=== PATIENT | female | born 1950 | race Two or more races ===

== ENCOUNTER 2024-05-20 07:20 | Day surgery (SDC) | payer MEDICARE, BC, SELFPAY ==
--- NOTE | 2024-05-17 10:40 | EKG_ITS ---
[facility] Test Date: 2024-05-17 Pat Name: RENE URIOSTEGUI Department: Room: - Gender: Female Brand Sales Manager: RT STUDENT : 1950 Requested By: Emeterio Woody Order Number: [id number] Reading MD: Emeterio Woody Measurements Intervals [place] Rate: 59 P: 34 NH: 140 QRS: -1 QRSD: 83 T: 4 QT: 432 QTc: 429 Interpretive Statements SINUS BRADYCARDIA MODERATE VOLTAGE CRITERIA FOR LVH, CONSIDER NORMAL VARIANT [MEETS CRITERIA IN ONE OF: R(aVL), S(V1), R(V5), R(V5/V6)+S(V1)] WARNING: DATA QUALITY MAY AFFECT INTERPRETATION No previous ECG available for comparison /[email or web address]/[id number]/[id number]
[2024-05-17 11:16] LABS: Partial Thromboplastin Time 26.8 Seconds (22.0-36.0); Prothrombin Time 10.7 Seconds (9.0-12.2)
[2024-05-17 11:30] LABS: Alanine Aminotransferase 17 U/L (10-49); Albumin, Serum 4.5 gm/dL (3.4-4.8); Albumin/Globulin Ratio 1.7 (1.2-2.2); Alkaline Phosphatase 85 U/L (46-116); Anion Gap 8 (7-16); Aspartate Amino Transferase 11 U/L (0-34); BUN/Creatinine Ratio 21 Ratio (12-20); Bilirubin,Total 0.5 mg/dL (0.3-1.2); Blood Urea Nitrogen 17 mg/dL (9-23); Calcium 9.7 mg/dL (8.3-10.6); Calcium (Corrected) 9.7 mg/dL (8.5-10.1); Carbon Dioxide 27.4 mMol/L (20.0-31.0); Chloride 105 mMol/L (98-107); Creatinine (Component) 0.8 mg/dL (0.6-1.3); Globulin 2.7 gm/dL (2.3-3.5); Glucose 95 mg/dL (74-106); Osmolality,Calculated 280 (275-295); Potassium 4.6 mMol/L (3.4-5.1); Sodium 140 mMol/L (136-145); Total Protein 7.2 gm/dL (5.7-8.2); eGFR > 60 See Note
[2024-05-17 13:34] VITALS: BMI 32.5
[2024-05-20 07:59] VITALS: BP 145/73; PULSE 72; RESP 18; TEMP 36.2; O2SAT 99; BMI 33.3
[2024-05-20] MEDS: SODIUM CHLORIDE 0.9% 500 ML 500 ML 20 ML IV (09:20)
[2024-05-20 09:40] VITALS: BP 134/55; PULSE 84; RESP 16; TEMP 36.3; O2SAT 96
[2024-05-20 09:50] VITALS: BP 136/67; PULSE 70; RESP 20; O2SAT 96
[2024-05-20 10:00] VITALS: BP 152/71; PULSE 74; RESP 17; O2SAT 96
[2024-05-20 10:10] VITALS: BP 149/73; PULSE 76; RESP 18; O2SAT 96
== END 2024-05-20 10:25 | disposition home or self-care (01) ==
PROVIDERS: PCP Internal Medicine Hematology & Oncology; Referring Provider Specialist; Visit Provider Specialist
PROC: 0DBE8ZX Excision of Large Intestine, Via Natural or Artificial Opening Endoscopic, Diagnostic (ICD-10-PCS; CPT 45380; principal; 2024-05-20 08:30)
DX: Z12.11 Encounter for screening for malignant neoplasm of colon (principal); D12.0 Benign neoplasm of cecum; K64.9 Unspecified hemorrhoids; K57.30 Diverticulosis of large intestine without perforation or abscess without bleeding; Z01.810 Encounter for preprocedural cardiovascular examination
CPT/HCPCS: 45380; 36415; 80053; 85610; 85730; 93005; A4649; J7040